=== PATIENT | male | born 1975 | race African-American/Black ===

== ENCOUNTER 2021-07-08 13:12 | Emergency (ER) | payer MEDICAID ==
[~2021-07-08] VITALS: Ht 175.3 cm; Wt 141.0 kg
[~2021-07-08 13:12] MED LIST: ARIP2TAB3 PO; CHOL500010 PO; HYDR25TA PO; NIFE30TA8 PO; TRAZ-251 PO
[2021-07-08] MEDS ORDERED: KETOROLAC 60MG/2ML VIAL IM STA (13:22)
[2021-07-08] MEDS ORDERED: HYDROCODONE/ACETAMINOPHEN 5/325MG TABLET PO STA (13:22)
[2021-07-08 13:55] LABS: BASOPHILS % 1.1 % (0.0-2.0); EOSINOPHILS % 1.4 % (0.0-5.0); HEMATOCRIT. 43.3 % (42.0-52.0); HEMOGLOBIN. 14.8 g/dL (14.0-18.0); LYMPHOCYTES % 32.9 % (20.0-50.0); MEAN CORPUSCULAR HEMOGLOBIN 30.8 pg (28.0-32.0); MEAN CORPUSCULAR VOLUME 90.3 fL (80.0-94.0); MEAN PLATELET VOLUME 8.4 fl (7.4-10.4); MONOCYTES % 8.8 % (2.0-8.0); NEUTROPHILS % 55.8 % (40.0-76.0); PLATELET 383 x1000/uL (130-400); RED CELL DISTRIBUTION WIDTH 14.2 % (11.6-14.6)
[2021-07-08 14:02] LABS: CHLORIDE 107 mEq/L (98-107)
[2021-07-08] MEDS ORDERED: LIDOCAINE 5% PATCH TOP SCH (15:15)
[2021-07-08 15:48] VITALS: BP 210/174
[2021-07-08] MEDS ORDERED: HYDR-4009 MT (16:38)
[2021-07-08] MEDS ORDERED: IBUP-2028 MT (16:38)
[2021-07-08] MEDS ORDERED: METH-653 MT (16:38)
[2021-07-08] MEDS ORDERED: LIDO1ADH23 TP (16:38)
[2021-07-09] MEDS ORDERED: IBUP-2028 MT (11:33)
[2021-07-09] MEDS ORDERED: HYDR-4009 MT (11:33)
[2021-07-09] MEDS ORDERED: METH-653 MT (11:33)
== END 2021-07-08 16:57 | disposition home or self-care (01) ==
LOC: ER 13:12
DX: M54.50 Low back pain, unspecified (principal); J45.909 Unspecified asthma, uncomplicated; E11.9 Type 2 diabetes mellitus without complications
CPT/HCPCS: 36415; 72100; 80053; 82962; 85025; 93005; 96372; 99285; J1885; Z7610

== ENCOUNTER 2021-09-10 12:20 | Inpatient (IN) | payer MEDICAID ==
[~2021-09-10] VITALS: Ht 175.3 cm; Wt 131.5 kg
[~2021-09-10 12:20] MED LIST changes: +HYDR-4009 MT; +IBUP-2028 MT; +LIDO1ADH23 TP; +METH-653 MT
[2021-09-10 14:55] LABS: BASOPHILS % 1.1 % (0.0-2.0); HEMATOCRIT. 41.8 % (42.0-52.0); HEMOGLOBIN. 13.9 g/dL (14.0-18.0); LYMPHOCYTES % 33.6 % (20.0-50.0); MEAN CORPUSCULAR HEMOGLOBIN 30.3 pg (28.0-32.0); MEAN CORPUSCULAR VOLUME 91.4 fL (80.0-94.0); MEAN PLATELET VOLUME 9.3 fl (7.4-10.4); MONOCYTES % 6.6 % (2.0-8.0); NEUTROPHILS % 57.7 % (40.0-76.0); PLATELET 373 x1000/uL (130-400); RED BLOOD CELL COUNT 4.58 mill/uL (4.7-6.1); RED CELL DISTRIBUTION WIDTH 14.5 % (11.6-14.6)
[2021-09-10 15:02] LABS: CHLORIDE 104 mEq/L (98-107)
[2021-09-10] MEDS ORDERED: AMLODIPINE 5MG TABLET PO ONE (15:15)
[2021-09-10] MEDS ORDERED: MORPHINE SULFATE 4 MG/ML CPJ (NOT FOR IM USE) IV ONE (15:15)
[2021-09-10 16:38] LABS: CREATINE KINASE 805 IU/L (39-308)
[2021-09-10] MEDS ORDERED: SODIUM CHLORIDE 0.9% 1,000 ML IV ONE (17:00)
[2021-09-10] MEDS ORDERED: MAGNESIUM/ALUMINUM HYDROXIDE/SIMETHICONE 30ML UDC PO PRN (19:30)
[2021-09-10] MEDS ORDERED: LORAZEPAM 2MG/ML CPJ IV PRN (19:30)
[2021-09-10] MEDS ORDERED: GUAIFENESIN 200MG/10ML SUGAR FREE UDC PO PRN (19:30)
[2021-09-10] MEDS ORDERED: DOCUSATE SODIUM 100MG CAPSULE PO PRN (19:30)
[2021-09-10] MEDS ORDERED: IPRATROPIUM/ALBUTEROL 0.5-3(2.5)MG/3ML NEB HHN PRN (19:30)
[2021-09-10] MEDS ORDERED: ACETAMINOPHEN 325MG TABLET PO PRN (19:30)
[2021-09-10] MEDS ORDERED: ONDANSETRON HCL 4MG/2ML INJ IV PRN (19:30)
[2021-09-10] MEDS ORDERED: DEXTROSE 50% WATER 50ML SYRINGE IV PRN (19:30)
[2021-09-10] MEDS ORDERED: DIPHENHYDRAMINE 50MG/ML VIAL IV PRN (19:30)
[2021-09-10] MEDS ORDERED: NALOXONE HCL 0.4MG/ML VIAL IV PRN (19:45)
[2021-09-10] MEDS: CLONIDINE 0.1MG TABLET PO PRN (20:10)
[2021-09-10] MEDS: BLOOD SUGAR DIAGNOSTIC STRIP TEST SCH (21:00)
[2021-09-10 21:30] VITALS: BP 193/124
[2021-09-10] MEDS: SODIUM CHLORIDE 0.45% 1,000 ML IV SCH (23:11)
[2021-09-10] MEDS: ENOXAPARIN 40MG/0.4ML SYR SUBCUT SCH (23:11)
[2021-09-10] MEDS: SODIUM CHLORIDE 0.9% INJ 3ML FLUSH IVF SCH (23:12)
[2021-09-10] MEDS: MORPHINE SULFATE 2 MG/ML CPJ (NOT FOR IM USE) IV PRN (23:12)
[2021-09-10] MEDS: INSULIN LISPRO 100 UNITS/ML SUBCUT SCH (23:13)
[2021-09-11] VITALS (7 sets, daily range): BP systolic 151–208; BP diastolic 96–133
[2021-09-11] MEDS: HYDRALAZINE 20MG/ML VIAL IV PRN ×2 (00:54→16:45)
[2021-09-11] MEDS: HYDROCODONE/ACETAMINOPHEN 5/325MG TABLET PO PRN ×2 (04:29→22:22)
[2021-09-11] MEDS: CLONIDINE 0.1MG TABLET PO PRN ×2 (04:29→20:56)
[2021-09-11] MEDS: SODIUM CHLORIDE 0.9% INJ 3ML FLUSH IVF SCH ×3 (04:30→22:19)
[2021-09-11 05:08] LABS: CHLORIDE 105 mEq/L (98-107)
[2021-09-11 05:22] LABS: CREATINE KINASE 645 IU/L (39-308)
[2021-09-11] MEDS: BLOOD SUGAR DIAGNOSTIC STRIP TEST SCH ×4 (06:11→21:00)
[2021-09-11 06:13] LABS: CLARITY URINE CLEAR (CLEAR); COLOR URINE YELLOW (YELLOW); KETONES URINE NEGATIVE (NEGATIVE); LEUKOCYTE ESTERASE URINE NEGATIVE (NEGATIVE); NITRITE URINE NEGATIVE (NEGATIVE); OCCULT BLOOD URINE NEGATIVE (NEGATIVE); PROTEIN URINE NEGATIVE (NEGATIVE); UROBILINOGEN URINE 0.2 E.U./dL (0.2-1.0)
[2021-09-11] MEDS: ENOXAPARIN 40MG/0.4ML SYR SUBCUT SCH ×2 (09:22→20:55)
[2021-09-11] MEDS: INSULIN LISPRO 100 UNITS/ML SUBCUT SCH ×4 (09:24→22:23)
[2021-09-11 12:03] LABS: BASOPHILS % 1.3 % (0.0-2.0); EOSINOPHILS % 1.4 % (0.0-5.0); HEMATOCRIT. 41.7 % (42.0-52.0); HEMOGLOBIN. 13.9 g/dL (14.0-18.0); LYMPHOCYTES % 38.5 % (20.0-50.0); MEAN CORPUSCULAR HEMOGLOBIN 31.1 pg (28.0-32.0); MEAN CORPUSCULAR VOLUME 92.9 fL (80.0-94.0); MEAN PLATELET VOLUME 8.6 fl (7.4-10.4); NEUTROPHILS % 49.8 % (40.0-76.0); PLATELET 363 x1000/uL (130-400); RED BLOOD CELL COUNT 4.48 mill/uL (4.7-6.1); RED CELL DISTRIBUTION WIDTH 14.1 % (11.6-14.6)
[2021-09-11] MEDS: SODIUM CHLORIDE 0.45% 1,000 ML IV SCH (12:12)
[2021-09-11 12:26] LABS: CREATINE KINASE MB FRACTION 1.8 ng/mL (0.5-3.6)
[2021-09-11] MEDS: MORPHINE SULFATE 2 MG/ML CPJ (NOT FOR IM USE) IV PRN (20:56)
[2021-09-12] VITALS: BP 149/82
[2021-09-12 04:00] VITALS: BP 142/97
[2021-09-12] MEDS: SODIUM CHLORIDE 0.45% 1,000 ML IV SCH (04:50)
[2021-09-12] MEDS: SODIUM CHLORIDE 0.9% INJ 3ML FLUSH IVF SCH (06:03)
[2021-09-12] MEDS: BLOOD SUGAR DIAGNOSTIC STRIP TEST SCH ×3 (06:21→17:20)
[2021-09-12 07:29] LABS: VITAMIN B12 SERUM 793 pg/mL (211-911)
[2021-09-12 08:00] VITALS: BP 184/100
[2021-09-12] MEDS: ENOXAPARIN 40MG/0.4ML SYR SUBCUT SCH (08:36)
[2021-09-12] MEDS: INSULIN LISPRO 100 UNITS/ML SUBCUT SCH ×3 (08:38→17:50)
[2021-09-12 12:00] VITALS: BP 159/93
[2021-09-12] MEDS: HYDROCODONE/ACETAMINOPHEN 5/325MG TABLET PO PRN (15:57)
[2021-09-12 16:00] VITALS: BP 190/100
[2021-09-12] MEDS: CLONIDINE 0.1MG TABLET PO PRN (16:05)
[2021-09-12 16:38] VITALS: BP 155/90
== END 2021-09-12 19:35 | disposition home or self-care (01) | DRG 347 ==
LOC: ER 12:32 → 6WST 16:58 → EDBEDREQTM 17:01 → EDBEDREQSVC 17:01 → EDBEDREQ 17:01 → ENRESERV 17:12
PROVIDERS: ADMIT Internal Medicine; ATTEND Internal Medicine
PROC: 4A00X4Z Measurement of Central Nervous Electrical Activity, External Approach (ICD-10-PCS; principal; 2021-09-12)
DX: M48.02 Spinal stenosis, cervical region (principal); E11.9 Type 2 diabetes mellitus without complications; M50.31 Other cervical disc degeneration, high cervical region; M48.061 Spinal stenosis, lumbar region without neurogenic claudication; M48.07 Spinal stenosis, lumbosacral region; R53.1 Weakness; E66.01 Morbid (severe) obesity due to excess calories; I10 Essential (primary) hypertension; I25.10 Atherosclerotic heart disease of native coronary artery without angina pectoris; I25.2 Old myocardial infarction; Z68.41 Body mass index [BMI] 40.0-44.9, adult; F17.210 Nicotine dependence, cigarettes, uncomplicated; J45.909 Unspecified asthma, uncomplicated; Z79.899 Other long term (current) drug therapy; Z82.49 Family history of ischemic heart disease and other diseases of the circulatory system
CPT/HCPCS: 36415; 72128; 72131; 80053; 81003; 82550; 82553; 82607; 82962; 84443; 84484; 85025; 93005; 93970; 95816; 99285; J0360; J1650; J1815; J2270; J7030

== ENCOUNTER 2021-11-09 12:25 | Emergency (ER) | payer MEDICAID ==
[~2021-11-09] VITALS: Ht 177.8 cm; Wt 140.0 kg
[~2021-11-09 12:25] MED LIST changes: -IBUP-2028 MT
[2021-11-09 12:55] VITALS: BP 152/110
[2021-11-09] MEDS ORDERED: LIDOCAINE HCL/PF 1% 10 MG/ML 5ML VIAL INFIL ONE (13:30)
[2021-11-09] MEDS ORDERED: BACITRACIN ZINC OINT UDPKT TOP ONE (13:30)
[2021-11-09] MEDS ORDERED: AMOX1TAB16 MT (15:24)
== END 2021-11-09 15:41 | disposition home or self-care (01) ==
LOC: ER 12:25
DX: L03.012 Cellulitis of left finger (principal); J45.909 Unspecified asthma, uncomplicated; E11.9 Type 2 diabetes mellitus without complications; Z79.899 Other long term (current) drug therapy
CPT/HCPCS: 10060; 99283; J3490; 99282

== ENCOUNTER 2021-12-29 21:59 | Emergency (ER) | payer MEDICAID ==
[~2021-12-29] VITALS: Ht 175.3 cm; Wt 137.0 kg
[~2021-12-29 21:59] MED LIST changes: +AMOX1TAB16 MT
[2021-12-29 22:28] VITALS: BP 183/125
[2021-12-30] MEDS ORDERED: IBUPROFEN 400MG TABLET PO ONE (00:15)
[2021-12-30] MEDS ORDERED: IBUPROFEN 400MG TABLET PO NR (04:15)
[2021-12-30] MEDS ORDERED: IBUP-2028 MT (05:52)
[2021-12-30] MEDS ORDERED: LISINOPRIL 20MG TABLET PO ONE (06:15)
== END 2021-12-30 06:50 | disposition home or self-care (01) ==
LOC: ER 21:59
DX: M54.50 Low back pain, unspecified (principal); I10 Essential (primary) hypertension; J45.909 Unspecified asthma, uncomplicated; E11.9 Type 2 diabetes mellitus without complications; Z79.899 Other long term (current) drug therapy
CPT/HCPCS: 72131; 72192; 99284